=== PATIENT | male | born 1990 | race Caucasian/White ===

== ENCOUNTER 2018-02-11 01:46 | Emergency (ER) | payer OTHER, SELFPAY ==
[2018-02-11 01:57] VITALS: BP 144/101; PULSE 59; RESP 20; TEMP 36.9; O2SAT 99
[2018-02-11] MEDS: MAG HYDROX/ALUMINUM/SIMETH SUS 20 ML, LIDOCAINE VISCOUS 2% 15 ML PO (02:06)
[2018-02-11 02:45] VITALS: BP 130/84; PULSE 59; RESP 16; O2SAT 100
--- NOTE | 2018-02-12 03:55 | ED_ITS ---
HPI - Abdominal Pain General Chief Complaint: Abdominal Pain Stated Complaint: heartburn since sat, feels funny,shivering Time Seen by Provider: 02/11/18 02:00 Source: patient and family Mode of arrival: ambulatory Limitations: no limitations History of Present Illness HPI narrative: 27-year-old otherwise healthy male presents with his mother and a chief complaint of the general feeling of being unwell for the past few days. He complains of epigastric pain and burning which is worse when he lays flat. He admits to a metallic taste in his throat and occasional cough. He has had decreased appetite and states his pain might improve with eating but certainly does not get worse. He denies radiation of his pain. He states his symptoms are similar to prior episodes a few years ago. He states his the episode became nearly unbearable after spending a week in [place] for his brother's wedding. He states he drink a significant amount of alcohol over the week and ate out in restaurants for most meals MD complaint: abdominal pain Onset (ago): minute(s) Pain Consistency: intermittent Location: epigastric Severity: moderate Quality: cramping and burning Radiation: none Migration to: no migration Relieving factors: eating Exacerbating factors: other (Lying flat) Associated symptoms: nausea Related Data Home Medications Medication Instructions Recorded Confirmed No Known Home Medications 02/11/18 02/11/18 Allergies Allergy/AdvReac Type Severity Reaction Status Date / Time No Known Drug Allergies Allergy Verified 02/11/18 02:00 Review of Systems Review of Systems All systems reviewed & are unremarkable except as noted in HPI and below Constitutional Denies chills, Denies fever(s), Denies lethargy and Denies weakness Eyes Denies change in vision, Denies eye discharge, Denies irritation and Denies loss of vision ENT Ears, Nose, Mouth, and Throat: Denies change in voice, Denies neck pain and Denies sore throat Cardiovascular Denies chest pain, Denies irregular heart rhythm, Denies lightheadedness, Denies palpitations, Denies dyspnea, Denies dyspnea on exertion and Denies orthopnea Respiratory Denies cough, Denies dyspnea, Denies dyspnea on exertion and Denies wheezing Gastrointestinal Gastrointestinal: Reports abdominal pain, Denies change in bowel habits, Reports dyspepsia, Denies diarrhea, Denies nausea and Denies vomiting Genitourinary Denies hematuria, Denies flank pain, Denies urinary incontinence and Denies urinary urgency Musculoskeletal Denies neck pain Integumentary/Breasts Denies pruritus, Denies erythema, Denies rash and Denies wounds Neurologic Denies confusion, Denies loss of vision and Denies weakness Psychiatric Denies anxiety, Denies confusion, Denies depression, Denies homicidal ideation and Denies suicidal ideation Endocrine Denies palpitations Hematologic/Lymphatic Denies easy bruising Allergic/Immunologic Denies wheezing Exam Narrative Exam Narrative: GEN: AOx3 and in mild distress EYES: Pupils are equal, round, and reactive to light and accommodation. Extraoccular muscles are intact bilaterally. There is no subconjunctival hemorrhage or exudate. CHEST: Lungs are clear to auscultation bilaterally and free of wheezes, rales, or rhonchi. Heart rate is regular rhythm, there are no murmurs, clicks, rubs, or gallops. There is no chest wall tenderness. ABD: Abdomen is soft and tender in the epigastrium. There is no guarding or rebound. Bowel sounds are normal in all 4 quadrants. There is no mass or organomegaly. EXT: Full painless ROM of all extremities with no loss of sensation or strength. SKIN: Warm, pink, and dry. No erythema or rash Initial Vital Signs Initial Vital Signs: Vital Signs Temperature 98.4 F 02/11/18 01:57 Pulse Rate 59 L 02/11/18 01:57 Respiratory Rate 20 02/11/18 01:57 Blood Pressure 144/101 H 02/11/18 01:57 Pulse Oximetry 99 02/11/18 01:57 Course Orders Ordered: Discontinued Medications Al Hydrox/Mg Hydrox/Simethicone 20 ml/ Lidocaine HCl 15 ml 0 ml PO NOW ONE Stop: 02/11/18 02:05 Last Admin: 02/11/18 02:06 Dose: 35 ml Reevaluation(s) Reevaluation #1: The patient has near complete resolution of symptoms after GI cocktail MDM - Abdominal Pain Differential Diagnosis Differential diagnosis: Likely abdominal pain, acute appendicitis, calculus of kidney, constipation, gastroenteritis, pancreatitis and small bowel obstruction MDM Narrative Medical decision making narrative: SBO, Pancreatitis and biliary disease considered but thought less likely given lack of reproducible pain on exam, lack of provocation by eating, and improvement with GI cocktail GERD, PUD, and dyspepsia considered most likely diagnoses given recent binge drinking, eating out, improvement of symptoms with GI cocktail, provocation by lying flat Discussed lab work and imaging with the patient but he he refused at this point time given how much better he feels and significant likelihood of GERD has diagnosis Discharge Plan Departure Patient Disposition: Home Clinical Impression: Chest pain due to GERD Discharge Date/Time: 02/11/18 02:47 Interventions: ED Discharge Assessment Last Done: 02/11/18 02:45 Instructions: DI for Dyspepsia Activity Restrictions/Additional Instructions: *You have been diagnosed with [ GERD ] *What to do: *Take medications as directed: over the counter Maalox plus Pepcid or Zantac *Follow up with your primary care provider in 2-3 days, call for an appointment. Let them know you were seen in the Emergency Department and that we ask that you be seen in follow up *Return to ER if you should have any new, worsening or concerning symptoms * avoid caffeine, alcohol, nicotine, fatty foods, spicy foods Prescriptions: No Action No Known Home Medications RF: 0
== END 2018-02-11 02:47 | disposition home or self-care (01) ==
PROVIDERS: Emergency Provider Emergency Medicine
DX: R07.9 Chest pain, unspecified (principal); K21.9 Gastro-esophageal reflux disease without esophagitis
CPT/HCPCS: 99282; 99283